=== PATIENT | male | born 1955 | race Caucasian/White ===

== ENCOUNTER 2017-02-17 09:54 | Emergency (ER) | payer OTHER ==
[2017-02-17 10:13] LABS: EOSINOPHIL (%) 4.4 % (0-5); EOSINOPHIL COUNT 0.3 K/uL (0-0.3); HEMATOCRIT 43.4 % (38.0-50.0); IMMATURE GRANULOCYTE (%) 0.9 % (0.0-0.7); IMMATURE GRANULOCYTE COUNT 0.1 K/uL; INSTRUMENT ABS NEUTROPHIL CT 4.4 K/uL; LYMPHOCYTE COUNT 2.1 K/uL (1.0-2.8); MCHC 34.8 G/DL (30.0-36.0); MCV 86.3 FL (86-99); MEAN PLAT.VOLUME 11.1 uM^3 (9.0-12.4); MONOCYTE (%) 10.2 % (3-12); MONOCYTE COUNT 0.8 K/uL (0-0.8); NEUTROPHIL (%) 57.2 % (45-76); NEUTROPHIL COUNT 4.4 K/uL (1.8-6.4); PLATELET COUNT 219 K/uL (156-360); RBC DIS.WIDTH-CV 12.8 % (11.8-14.6); RBC DIS.WIDTH-SD 40.1 % (39-53); RED BLOOD COUNT 5.03 M/uL (4.00-5.50); WHITE BLOOD COUNT 7.7 K/uL (4.1-10.2)
[2017-02-17 10:32] LABS: AMYLASE 26 IU/L (1-118); CHLORIDE 103 mEq/L (99-109); POTASSIUM 4.9 mEq/L (3.7-5.4); SODIUM 139 mEq/L (136-147)
[2017-02-17 10:34] LABS: GLUCOSE 204 mg/dL (70-99)
[2017-02-17 10:36] LABS: ANION GAP 13 MEQ/L (2-14)
[2017-02-17 10:37] LABS: SERUM ETHYL ALCOHOL < 10 mg/dL
[2017-02-17 10:39] LABS: UREA NITROGEN (BUN) 18 mg/dL (9-23)
[2017-02-17 10:41] LABS: LIPASE 31 U/L (1.0-51.0)
[2017-02-17 10:54] LABS: GFR ESTIMATE (CALCULATED) > 59 mL/min/
[2017-02-17] MEDS ORDERED: LORTAB 5-325 M1 EACH PO (14:04)
[2017-02-17] MEDS ORDERED: KEFLEX500 MG PO (14:04)
[2017-02-17] MEDS ORDERED: MOTRIN600 MG PO (14:04)
[2017-02-21] MEDS ORDERED: ASPIRIN325 MG PO (14:23)
== END 2017-02-17 16:14 | disposition home or self-care (01) ==
LOC: EDBD 09:54 → TRA 09:54
PROVIDERS: Emergency Medicine
PROC: 0HQ1XZZ Repair Face Skin, External Approach (ICD-10-PCS; principal; 2017-02-17)
DX: S01.411A Laceration without foreign body of right cheek and temporomandibular area, initial encounter (principal); T07 Unspecified multiple injuries; S22.49XA Multiple fractures of ribs, unspecified side, initial encounter for closed fracture; R68.84 Jaw pain; W11.XXXA Fall on and from ladder, initial encounter
CPT/HCPCS: 70450; 70486; 71010; 71260; 72125; 73130; 80048; 81003; 82150; 83690; 85025; 86900; 86901; 93005; 99281; 99285; G0480; J0690; J1885; J2270; J2405

== ENCOUNTER 2017-02-21 14:56 | Emergency (ER) | payer OTHER ==
[~2017-02-21] VITALS: Ht 170.2 cm; Wt 92.0 kg
[2017-02-21 18:00] VITALS: BP 144/85
== END 2017-02-21 18:01 | disposition home or self-care (01) ==
LOC: EME 14:56
DX: S46.001A Unspecified injury of muscle(s) and tendon(s) of the rotator cuff of right shoulder, initial encounter (principal); S06.0X0A Concussion without loss of consciousness, initial encounter; S50.01XA Contusion of right elbow, initial encounter; Z91.81 History of falling; Z79.82 Long term (current) use of aspirin
CPT/HCPCS: 70450; 73030; 73080; 99281; 99284

== ENCOUNTER → 2017-02-21 | Outpatient (CLI) | payer OTHER ==
[~2017-02-21] MED LIST: ASPIRIN325 MG PO; KEFLEX500 MG PO; LORTAB 5-325 M1 EACH PO; MOTRIN600 MG PO
== END | disposition home or self-care (01) ==
LOC: AMB 14:00
DX: R51 Headache (principal); M25.521 Pain in right elbow; M25.511 Pain in right shoulder; R03.0 Elevated blood-pressure reading, without diagnosis of hypertension; Z91.81 History of falling